=== PATIENT | male | born 1985 | race Two or more races ===

== ENCOUNTER 2018-06-02 15:49 | Emergency (ER) | payer SELFPAY ==
[~2018-06-02] VITALS: Ht 170.2 cm; Wt 95.3 kg
--- NOTE | 2018-06-02 15:55 | NUR ---
PT BIB SELF. COMP OF "HITTING MY LOWER LEG". NO SOB NOTED. NO PAIN NOTED. AWAITING MD COLBERT.
[2018-06-02] MEDS ORDERED: IBUPROFEN 400 MG TABLET ONE (16:19)
[2018-06-02] MEDS: IBUPROFEN 400 MG TABLET PO ONE (16:25)
[2018-06-02] MEDS ORDERED: BACI/NEOM/POLY B OINT PKT 1 UDPKT PACKET ONE (16:32)
[2018-06-02] MEDS: BACI/NEOM/POLY B OINT PKT 1 UDPKT PACKET TP ONE (16:43)
[2018-06-02 17:22] VITALS: BP 118/76
== END 2018-06-02 17:22 | disposition home or self-care (01) ==
LOC: ER 15:58
DX: S80.812A Abrasion, left lower leg, initial encounter (principal); W22.8XXA Striking against or struck by other objects, initial encounter; Y93.89 Activity, other specified; Y92.89 Other specified places as the place of occurrence of the external cause; Y99.8 Other external cause status
CPT/HCPCS: 73590-TC; A4606; Z7610